=== PATIENT | female | born 1985 | race Caucasian/White ===

== ENCOUNTER 2018-10-19 05:04 | Inpatient (IN) | payer OTHER, BC, SELFPAY ==
[2018-10-19] VITALS (22 sets, daily range): BP systolic 91–122; BP diastolic 44–61; PULSE 66–102; RESP 11–19; TEMP 36.1–37; O2SAT 94–100; BMI 31.9
[2018-10-19] MEDS: Lactated Ringers 1,000 ML 150 ML IV (05:25)
[2018-10-19 05:43] LABS: Absolute Lymphocyte Count 2.22 X10^3/uL (0.83-4.51); Absolute Neutrophil Count 4.1 X10^3/uL (2.0-7.7); Basophil# 0.01 X10^3/uL; Basophil% 0.1 % (0-1); Eosinophils% 1.4 % (0-5); Hematocrit 35.6 % (37-47); Hemoglobin 12.2 g/dL (12.0-15.0); Lymphocyte # 2.22 X10^3/ul (4.0); Lymphocyte % 31.8 % (19-41); Mean Corp Hgb Conc 34.3 g/dL (32-36); Mean Corpuscular Hgb 31.2 pg (27.0-32.0); Mean Platelet Vol. 11.5 fl (6.2-12.0); Monocyte# 0.52 X10^3/uL; Monocyte% 7.4 % (0-10); NRBC Flagged by Analyzer 0 % (0-5); Neutrophil # 4.09 X10^3/uL (2.7-7.7); Neutrophil % 58.7 % (47-70); Platelet Count 201 K/mm3 (150-450); RBC Distribution Width CV 13.3 % (11.6-14.6); RBC Distribution Width SD 43.3 fl (35.1-43.9); Red Blood Count 3.91 M/mm3 (4.2-5.4)
[2018-10-19] MEDS: Sodium Citrate/Citric Acid 30 ML UDC PO (06:54)
[2018-10-19] MEDS: Lactated Ringers 1,000 ML 999 ML IV (06:55)
--- NOTE | 2018-10-19 07:19 | PCM.PN.BLA ---
Progress Note i HAVE REEXAMINED THE PATIENT, THERE ARE NO CHANGES TO HER HISTORY AND PHYSICAL EXAM
[2018-10-19] MEDS: Oxytocin 30 units/NS 500 ml 30 UNITS/500 ML IV.SOLN 167 UNITS IV (07:43)
--- NOTE | 2018-10-19 08:15 | PCM.OPRPT ---
Delivery Classification: Scheduled Final DALTON: 11/08/18 Final DALTON Source: US <20 weeks Gestational age: 37 Weeks and 1 Days Indications: Previous T incision on the uterus Description of Procedure: After informed consent was obtained the patient was taken to the operating room she was given spinal anesthesia. sHe was placed in the supine position. She was then prepped and draped in normal sterile fashion. Once spinal anesthesia was found to be adequate skin incision was made with a scalpel in a Pfannenstiel fashion. It was carried down to the underlying layer of the fascia. Fascia was then incised midline with scapel and extended laterally using curved mosher. 2 straight [place]'s were placed in the superior aspect of the fascial edge and the rectus muscles were dissected off sharply Attention was then turned to the inferior aspect where again the fascial edge was grasped with 2 straight [place] clamps tented up and the rectus muscle dissected off sharply. At this time the rectus muscles were grasped in the midline using 2 Allis clamps and scalpel was used to separate the rectus muscles. Using blunt force the peritoneum was then entered. Metzenbaums were used to take down the rectus muscles inferiorly as well as the peritoneum. At this time the vesicouterine peritoneum was identified. To begin adhesions to the anterior uterine wall appreciated. Metzenbaum scissors were dissected the adhesions off of the lower uterine segment. Adhesions to the right gutter were taken down to create more space. Adhesions to the left gutter were not able to be taken down due to how dense they were. Unable to obtain access to the left gutter. Adhesions to the anterior fundal aspect of the uterus is well were dense. Uterine incision was made in a low transverse fashion with the scalpel and then entered bluntly-placenta noted at site of uterine incision. Gentle opposing traction was placed to extend the uterine incision. The membranes were ruptured amniotic fluid clear. 's head was then brought to the uterine incision was delivered atraumatically followed by the rest infant's body. At this time delayed cord clamping was performed mouth nose were suctioned. Infant was then handed to the waiting nursery team for immediate skin to skin. The placenta was then removed with gentle traction. The uterus was not able to be removed from the intra-abdominal cavity due to the dense adhesions. Uterus was cleared of all clots and debris using a moist lap. Ring clamps were placed on the uterine angles. #1 Vicryl suture was used in a running locked fashion for the first layer. Followed by second layer with #1 Vicryl [id number] fashion for hemostasis. Oozing was appreciated from the adhesion sites as well as from the lower uterine segment. At this time pressure was held and Ayala was placed over the uterine incision as well as the adhesions. Overall good hemostasis was appreciated there was no active pooling appreciated. At this time was to continue closure. The peritoneum and muscle were grasped with Kellys and reapproximated using #2 Vicryl suture in a running fashion. Yaala was placed over the muscle. the fascia was then reapproximated using #1 Vicryl in a running fashion. Subcutaneous layer was evaluated and Bovie was used for any small oozing that was noted per #2-0 plain gut suture was then used to reapproximate the subcutaneous layer 4-0 Monocryl was used to reapproximate the skin in a subcutaneous fashion. Dry sterile dressing was applied. Instrument lap needle count were correct ?2. Anticipated normal postoperative course for this patient. Patient was notified of the dense adhesions and if she has further abdominal surgeries should notify operating team of these. Urine remain clear the entire procedure. No uterine dehiscence was appreciated Amniotic Membrane Rupture Type: Artificial Amniotic Fluid Description: Clear Placenta Disposition: [facility] Drain: Salgado to straight drain Cord Entanglement: None Cord Vessel Description: 3 Vessels Esitmated Blood Loss (ml): 900 Gender: Female (1 minute): 9 (5 minute): 9 Delayed cord clamping: Yes Pre-op Antibiotic Given: Clindamycin 600mg IV x1 and Gentamicin 1.5mg/kg IV x1 Pt instructed on risks of surgery: Bleeding, Anesthesia Risks, Infection, Need for Future C-Sections, Injury to surrounding structure(s) including bowel and bladder Complications: None - Admit VTE Documentation VTE Present on Admission: Yes VTE Mechan Device Prophylaxis: SCD's VTE Pharm Prophylaxis ordered?: No
[2018-10-19] MEDS: Lactated Ringers 1,000 ML 100 ML IV ×2 (08:30→16:11)
[2018-10-19] MEDS: Methylergonovine 0.2 MG/ML Ampul IM (08:51)
[2018-10-19] MEDS: Ondansetron 4 MG/2 ML Vial IV (11:59)
[2018-10-19] MEDS: Ketorolac 30 MG/ML Syringe IV ×2 (16:03→21:51)
[2018-10-19] MEDS: 0.9% Saline Lock 10 ML Syringe IV (21:52)
[2018-10-20] VITALS (8 sets, daily range): BP systolic 101–117; BP diastolic 52–63; PULSE 68–96; RESP 16–20; TEMP 36.6–36.9; O2SAT 96–98
[2018-10-20] MEDS: Lactated Ringers 1,000 ML 100 ML IV (01:50)
[2018-10-20] MEDS: Ketorolac 30 MG/ML Syringe IV ×4 (04:28→21:42)
[2018-10-20] MEDS: Senna/Docusate Sodium 1 Tablet PO (06:27)
[2018-10-20] MEDS: Acetaminophen 500 MG Tablet 1000 MG PO (06:28)
[2018-10-20 06:31] LABS: Hematocrit 25.9 % (37-47); Hemoglobin 8.7 g/dL (12.0-15.0); Mean Corp Hgb Conc 33.6 g/dL (32-36); Mean Corpuscular Hgb 31.1 pg (27.0-32.0); Mean Corpuscular Volume 92.5 fL (81-99); Mean Platelet Vol. 11.4 fl (6.2-12.0); Platelet Count 157 K/mm3 (150-450); RBC Distribution Width CV 13.7 % (11.6-14.6); RBC Distribution Width SD 46.6 fl (35.1-43.9); White Blood Count 9.9 K/mm3 (4.4-11.0)
--- NOTE | 2018-10-20 07:48 | PCM.PN.OB ---
Subjective: She is seen at bedside, doing well. Patient reports good pain control. Denies any chest pain, shortness of breath, dizziness, palpitations. Patient reports is ambulating. Voiding without difficulty. Passing flatus. Lochia is mild. Breast-feeding going well. - Physical Exam General: Alert, Oriented x3 Abdomen: Soft, Non-Distended, Passing Flatus, - - fundus firm. dressing dry and intact Extremities: No Calf Tenderness Vital Signs Temp Pulse Resp BP Pulse Ox 98.4 F 91 18 109/52 L 98 10/20/18 03:09 10/20/18 06:10 10/20/18 06:10 10/20/18 03:09 10/20/18 06:10 Oxygen Delivery Method Room Air Weight: 92.6 kg Body Mass Index (BMI) 31.9 Intake and Output for Last 24 Hours 10/18/18 10/19/18 10/20/18 23:59 23:59 23:59 Intake Total 3983 / 3983 1882 / 1882 Output Total 900 / 900 1300 / 1300 Balance 3083 / 3083 582 / 582 Laboratory Tests Past 24 Hrs 10/20/18 06:15 WBC 9.9 RBC 2.80 L Hgb 8.7 L Hct 25.9 L MCV 92.5 MCH 31.1 MCHC 33.6 RDW Std Deviation 46.6 H RDW Coeff of Terri 13.7 Plt Count 157 MPV 11.4 Medical Necessity - Tobacco Use Smoking Status: Never smoker Assessment/Plan POD#1, doing well- acute blood loss anemia routine care pain mgmt ambulation repeat cbc at 12p
[2018-10-20] MEDS: 0.9% Saline Lock 10 ML Syringe IV ×3 (10:24→21:42)
[2018-10-20] MEDS: oxyCODONE 5 MG Tablet PO ×3 (12:19→20:09)
[2018-10-20 12:25] LABS: Hematocrit 24.8 % (37-47); Hemoglobin 8.4 g/dL (12.0-15.0); Mean Corp Hgb Conc 33.9 g/dL (32-36); Mean Corpuscular Hgb 31.7 pg (27.0-32.0); Mean Corpuscular Volume 93.6 fL (81-99); Mean Platelet Vol. 11.4 fl (6.2-12.0); Platelet Count 164 K/mm3 (150-450); RBC Distribution Width CV 13.8 % (11.6-14.6); RBC Distribution Width SD 46.3 fl (35.1-43.9); Red Blood Count 2.65 M/mm3 (4.2-5.4); White Blood Count 9.7 K/mm3 (4.4-11.0)
[2018-10-21 02:05] VITALS: BP 116/65; PULSE 87; RESP 18; TEMP 36.9
[2018-10-21] MEDS: Ketorolac 30 MG/ML Syringe IV ×2 (03:41→10:29)
[2018-10-21] MEDS: 0.9% Saline Lock 10 ML Syringe IV ×2 (03:41→10:29)
[2018-10-21] MEDS: Senna/Docusate Sodium 1 Tablet PO (07:55)
[2018-10-21 08:00] VITALS: BP 104/57; PULSE 91; RESP 16; TEMP 36.6
--- NOTE | 2018-10-21 08:40 | PCM.PN.OB ---
Subjective: Doing well per patient and nursing staff. Voiding and passing flatus. Had bowel movement. No increased vaginal bleeding or clots. Denies any chest pain, shortness of breath or leg pain. without difficulty. Planning D/C home today. - Physical Exam General: Alert, Oriented x3, Cooperative HEENT: Atraumatic, Normocephalic Neck: Trachea Midline Lungs: Clear to auscultation, Normal air movement, No rhonchi, No wheeze Cardiovascular: Regular rate, Regular Rhythm, No murmurs Abdomen: Bowel Sounds Present, Soft, - - appropriately tender. Incision clean and dry. Extremities: No edema - Raya's negative bilaterally Psych/Mental Status: Normal Affect, Appropriate Vital Signs Temp Pulse Resp BP Pulse Ox 98.4 F 87 18 116/65 98 10/21/18 02:05 10/21/18 02:05 10/21/18 02:05 10/21/18 02:05 10/20/18 06:10 Oxygen Delivery Method Room Air Weight: 204 lb 2.369 oz Body Mass Index (BMI) 31.9 Intake and Output for Last 24 Hours 10/19/18 10/20/18 10/21/18 23:59 23:59 23:59 Intake Total 3983 / 3983 1882 / 1882 Output Total 900 / 900 1500 / 1500 Balance 3083 / 3083 382 / 382 Laboratory Tests Past 24 Hrs 10/20/18 12:05 WBC 9.7 RBC 2.65 L Hgb 8.4 L Hct 24.8 L MCV 93.6 MCH 31.7 MCHC 33.9 RDW Std Deviation 46.3 H RDW Coeff of Terri 13.8 Plt Count 164 MPV 11.4 Medical Necessity - Tobacco Use Smoking Status: Never smoker Assessment/Plan A:POD #2 Repeat Section P: 1) Reviewed post op instructions and discharge instructions 2) information reviewed 3) Percocet for pain, Rx given 4) Ferrous sulfate 325mg PO BID for anemia 5) Colace for constipation 6) D/C home today. Follow up in 1-2 weeks for incision check and 6 week for visit.
--- NOTE | 2018-10-21 08:55 | DS.PCM_ITS ---
Discharge Date and Diagnosis Date of Admission: 10/19/18 Date of Discharge: 10/21/18 - Primary Discharge Diagnosis section Hospital Course and Treatment Summary of Care Provided: The patient is a 33 year old F [Presented for repeat section due to previous T incision. Post op acute blood loss anemia. Rest of hospital course uncomplicated. Discharged home on POD #2. ] - Physical Exam Vital Signs Temp Pulse Resp BP Pulse Ox 98.4 F 87 18 116/65 98 10/21/18 02:05 10/21/18 02:05 10/21/18 02:05 10/21/18 02:05 10/20/18 06:10 Oxygen Delivery Method Room Air Weight: 204 lb 2.369 oz Body Mass Index (BMI) 31.9 Intake and Output for Last 24 Hours 10/19/18 10/20/18 10/21/18 23:59 23:59 23:59 Intake Total 3983 / 3983 1882 / 1882 Output Total 900 / 900 1500 / 1500 Balance 3083 / 3083 382 / 382 Laboratory Tests Past 24 Hrs 10/20/18 12:05 WBC 9.7 RBC 2.65 L Hgb 8.4 L Hct 24.8 L MCV 93.6 MCH 31.7 MCHC 33.9 RDW Std Deviation 46.3 H RDW Coeff of Terri 13.8 Plt Count 164 MPV 11.4 Home Medications: Medications to take at Discharge Vits [Prenatabs FA ] 1 tablet PO DAILY 02/10/16 Ferrous Sulfate 325 mg PO BID #30 tab 10/21/18 Oxycodone HCl/Acetaminophen [Percocet 5/325] 1 - 2 tab PO Q4H PRN PRN 7 Days #20 tab 10/21/18 Following Prescrptions Were Given to Patient: Ferrous Sulfate 325 mg PO BID #30 tab Transmission Status: Pending to [facility] Oxycodone HCl/Acetaminophen [Percocet 5/325] 1 - 2 tab PO Q4H PRN PRN 7 Days #20 tab PRN Reason: Pain Prescription Printed Primary Care Physician: Eric Mcfarlane MD [Primary Care Provider] - Medical Necessity - Tobacco Use Smoking Status: Never smoker Meaningful Use Info Meaningful Use Diagnoses (Choose all that apply): None applicable
[2018-10-21] MEDS: oxyCODONE 5 MG Tablet PO (12:57)
[2018-10-21 13:22] VITALS: BP 121/65; PULSE 97; RESP 16; TEMP 36.8
== END 2018-10-21 13:40 | disposition home or self-care (01) | DRG 786 ==
PROVIDERS: Admitting Provider Obstetrics & Gynecology; Family Provider Family Medicine; PCP Family Medicine; Referring Provider Obstetrics & Gynecology; Visit Provider Obstetrics & Gynecology
PROC: 10D00Z1 Extraction of Products of Conception, Low, Open Approach (ICD-10-PCS; CPT 59514; principal; 2018-10-19 07:15)
DX: O65.5 Obstructed labor due to abnormality of maternal pelvic organs (principal); O60.14X0 Preterm labor third trimester with preterm delivery third trimester, not applicable or unspecified; D62 Acute posthemorrhagic anemia; O34.211 Maternal care for low transverse scar from previous cesarean delivery; O99.02 Anemia complicating childbirth; Z3A.37 37 weeks gestation of pregnancy; Z37.0 Single live birth
CPT/HCPCS: 85025; 85027; 86850; 86900; 94762; 99218; J7120; A4216; G0378; J2405

== ENCOUNTER 2022-08-01 05:05 | Inpatient (IN) | payer BC, SELFPAY ==
--- NOTE | 2022-07-29 08:12 | PCM.HP.BLA ---
History and Physical Date of Admission: 08/01/22 Pre-Op History and Physical ? HPI: The patient is a 37 year old female presenting for pre-operative visit. She is scheduled for , for repeat cs for h/o T incision on uterus on 08/01/22. Procedure discussed along with risks, benefits and complications. Other alternatives discussed for management. Consent form signed? Yes. ? ? PAST MEDICAL HISTORY PAST MEDICAL HISTORY Diagnosis Date ? Anemia ? ? infertilty ? ? male factor ? Overweight (BMI 25.0-29.9) ? ? hemorrhage ? ? blood transfusion -2Unites of PRBC ? Scoliosis ? ? Seasonal allergies ? ? ? PAST SURGICAL HISTORY PAST SURGICAL HISTORY Procedure Laterality Date ? DELIVERY ONLY ? 02/10/2016 ? T incision- needs 37 week repeat csection with all deliveries ? DELIVERY ONLY ? 10/19/2018 ? RC/S T incision, ? IVF RETRIEVAL ANY METHOD ? ? ? KERATOMILEUSIS Bilateral 11/01/2021 ? DVA OU BY DR. PARRA ? MYRINGOTOMY ASPIR&/EUSTACHIAN TUBE NFLTJ ANES ? ? ? Myringotomy/tubes-when she was a child-they were removed. ? ? ? CURRENT MEDICATIONS Current Outpatient Medications Medication Sig Dispense Refill ? pantoprazole DR (PROTONIX) 20 mg tablet Take 1 tablet by mouth once daily. 30 tablet 3 ? aspirin 81 mg chewable tablet Take 81 mg by mouth once daily. ? ? ? PROGESTERONE IN OIL INTRAMUSC. Inject intramuscularly. ? ? ? Safety [place] (BD SAFETYGLIDE NEEDLE) 22 gauge x 1 1/2 ndle To be used to inject progesterone in oil. 105 Each 0 ? estradiol (ESTRACE) 2 mg tablet Take 3 tablets by mouth once daily. 120 tablet 3 ? Syringe with Needle, Disp, (BD LUER-ASHKAN SYRINGE) To be used to draw up progesterone in oil. 30 Each 3 ? Needle, Disp, 22 G (BD DISPOSABLE NEEDLES) 22 gauge x 1 1/2 To be used to inject progesterone in oil. 30 Each 3 ? PNV No.40-Iron Fum-FA Cmb No.1 27-1 mg tab Take 1 tablet by mouth once daily. 30 tablet 11 ? multivitamin tablet Take 1 tablet by mouth once daily. ? ? ? No current facility-administered medications for this visit. ? ? ALLERGIES: Penicillins ? PERSONAL HISTORY: SOCIAL HISTORY Social History ? Tobacco Use ? Smoking status: Never ? Smokeless tobacco: Never Vaping Use ? Vaping Use: Never used Substance Use Topics ? Alcohol use: Not Currently ? ? Comment: occasional ? Drug use: No ? FAMILY HISTORY: FAMILY HISTORY FAMILY HISTORY Problem Relation Age of Onset ? Breast Cancer Mother 42 ? Hypertension Father ? ? No Known Problems Brother ? ? No Known Problems Maternal Grandmother ? ? other (dementia) Maternal Grandfather ? ? Heart Paternal Grandmother ? ? Cancer Paternal Grandfather ? ? lung ? No Known Problems Daughter ? ? No Known Problems Daughter ? ? Alzheimer's Disease Other ? ? MGGM ? Glaucoma No Family History ? ? Detached Retina No Family History ? ? Macular Degen No Family History ? ? Blindness No Family History ? ? ? REVIEW OF SYMPTOMS: negative except as noted above PHYSICAL EXAMINATION: ? VITALS: Blood pressure 118/60, weight 201 lb (91.2 kg), last menstrual period 11/16/2021. ? GENERAL: The patient is well nourished, well hydrated in no acute distress. , The patient is oriented to time, place, and person. NECK: Supple. No lynphadenopathy, normal thyroid, no thyromegaly. GENITALIA: normal, no lesions ? IMPRESSION: 37yo @ 36.1 weeks h/o T- incision on uterus, AMA, IVF ? PLAN: 37 week repeat section ? Pt has been counseled on risks/benefits and alternatives of surgery including but not limited to anesthesia, bleeding, infection, injury to pelvic structures including bowel, bladder, ureters and vessels. Pt wishes to proceed with surgery at this time. Risk of blood transfusion reviewed. ? Pre and post op instructions reviewed. ? I have reviewed and updated past medical and surgical history, medications and allergies Marysol Butts MD Routine Office Visit on 07/26/2022 Routine Office Visit on 07/26/2022 Note shared with patient
[2022-08-01] VITALS (18 sets, daily range): BP systolic 96–126; BP diastolic 46–81; PULSE 68–111; RESP 11–21; TEMP 35.8–37.1; O2SAT 95–100; BMI 31.8
[2022-08-01] MEDS: Lactated Ringers 1,000 ML 999 ML IV (05:50)
[2022-08-01 06:09] LABS: Absolute Neutrophil Count 4.7 X10^3/uL (2.0-7.7); Basophil# 0.02 X10^3/uL; Basophil% 0.3 % (0-1); Eosinophil# 0.13 X10^3/uL; Eosinophils% 1.9 % (0-5); Hemoglobin 11.4 g/dL (12.0-15.0); Lymphocyte % 22.9 % (19-41); Mean Corp Hgb Conc 32.6 g/dL (32-36); Mean Corpuscular Hgb 30.6 pg (27.0-32.0); Mean Corpuscular Volume 94.1 fL (81-99); Mean Platelet Vol. 10.9 fl (6.2-12.0); Monocyte# 0.49 X10^3/uL; NRBC Flagged by Analyzer 0 % (0-5); Neutrophil # 4.68 X10^3/uL (2.7-7.7); Neutrophil % 66.9 % (47-70); Platelet Count 240 K/mm3 (150-450); RBC Distribution Width CV 13.5 % (11.6-14.6); RBC Distribution Width SD 45.9 fl (35.1-43.9); Red Blood Count 3.72 M/mm3 (4.2-5.4)
[2022-08-01] MEDS: Acetaminophen 500 MG Tablet 1000 MG PO ×3 (06:36→22:33)
[2022-08-01] MEDS: Sodium Citrate/Citric Acid 30 ML UDC PO (06:36)
[2022-08-01] MEDS: Lactated Ringers 1,000 ML 150 ML IV (06:50)
[2022-08-01] MEDS: Cefazolin 2 GM in 0.9% Normal Saline 100 ML IV (07:33)
[2022-08-01 09:15] LABS: Syphilis Antibodies Non-reactive
[2022-08-01] MEDS: Oxytocin 15 Units/NS 250ml 15 UNITS/250 ML IV.SOLN 83 UNITS IV (09:45)
--- NOTE | 2022-08-01 09:57 | FALS_PTH ---
PATIENT: ROYAL LUX LOC: WP U#:[id number] AGE/SX: 37/F ROOM: WP004 RE08/01/[address]: Dr. Marysol Mccormick, MDDOB: 1985 BED: 1 DIS: 08/03/2022 SPEC #: [id number] RECD: 08/01/22 11:01 STATUS: VIOLETA HIMANSHU #: [id number] ABRAHAM: 08/01/22 09:[address]: Marysol Mccormick DEPT: SURGICAL PATHOLOGY RECD BY: Kimmy Tipton ENTERED: 08/01/22 11:01 SP TYPE: FALL TUBES OTHR DR: Dr. Eric Mcfarlane MD Tissues: Fallopian tube Procedures: Surgery Specimen Level II HEADER OPERATION: Tubal ligation PRE-OP DIAGNOSIS: Sterilization TISSUE SUBMITTED: Bilateral fallopian tubes MICROSCOPIC DIAGNOSIS Right and left fallopian tubes, bilateral segmental salpingectomies: Complete segments of fallopian tubes with no pathologic change. AM:christopher 08/02/2022 MICROSCOPIC DESCRIPTION Slides are reviewed. GROSS DESCRIPTION Received in fixative is one container labeled with the patient's name and designated bilateral fallopian tubes. The specimen consists of bilateral fallopian tubes including fimbrial ends. One fallopian tube shows a suture, however, is not designated right or left. The fallopian tube without suture measures 8.5 cm in length and 0.7 cm in diameter and fallopian tube with suture measures 8.5 cm in length and 0.5 cm in diameter. Sections reveal unremarkable cut surfaces. Steward/Stewardess Bath sections are submitted in two cassettes as follows: 1 - fallopian tube with suture, 2 - fallopian tube without suture. / SJ:christopher 08/01/2022 TC:4 [facility]: [id number] x2
[2022-08-01 10:08] LABS: Pathology Specimen OB SEE PATHOLOGY REPORT
[2022-08-01] MEDS: Ketorolac 30 MG/ML Syringe IV (10:26)
--- NOTE | 2022-08-01 10:49 | OP.PCM_ITS ---
Details Operative Information Date of Procedure: 08/01/22 Pre-Operative Diagnosis: 37 weeks, h/o T incision on uterus, h/o PP hemorrhage, AMA, IVF Post-Operative Diagnosis: Same, Dense Pelvic/peritoneal adhesions Indications for : Repeat Elective and Desires elective sterilization Indications Narrative: Patient had prior T-incision on her uterus. Recommended delivery at 37 weeks. Dense adhesions to the anterior uterus. Patient was counseled during the section that further would be very difficult during the surgery patient opted for bilateral salpingectomy. Patient was counseled and verbal consent was obtained during the procedure to perform bilateral salpingectomy. Classification: Scheduled Procedure Type: - (High transverse ) manufacturing technology analyst #1: Kym Weaver manufacturing technology analyst #2: leeanne noel [id number] Type of Anesthesia: Spinal Antibiotic Given: Ancef 2 grams IV x1 Drain: Salgado to straight drain Estimated Blood Loss: 1000 Fluids Replaced: 1050 Procedure Start Time: 07:49 Procedure Stop Time: 08:52 Time of Delivery: 08:00 Findings Description of Procedure: After informed consent was obtained the patient was taken to the operating room she was given spinal anesthesia. sHe was placed in the supine position. She was then prepped and draped in normal sterile fashion. Once spinal anesthesia was found to be adequate skin incision was made with a scalpel in a Pfannenstiel fashion. It was carried down to the underlying layer of the fascia. Fascia was then incised midline with scapel and extended laterally using scalpel. 2 straight [place]'s were placed in the superior aspect of the fascial edge and the rectus muscles were dissected off with bovie. At this time the rectus muscles were grasped in the midline using 2 Allis clamps and scalpel was used to separate the rectus muscles. Peritoneum was then grasped with 2 snaps Metzenbaum was used to enter the peritoneum significant adhesions were encountered. Bovie was used to take down the rectus muscles inferiorly. Dense adhesions were encountered muscle was taken down laterally. Unable to take down the adhesions inferiorly. At this time decision was made to create a high transverse incision on the uterus. Uterine incision was made in a high transverse fashion with the scalpel and then entered bluntly. Gentle opposing traction was placed to extend the uterine incision. Placenta was encountered. The membranes were ruptured amniotic fluid appeared to be clear. 's head was then brought to the uterine incision was delivered atraumatically followed by the rest infant's body. At this time no delayed cord clamping was performed the cord was immediately clamped mouth nose were suctioned. Infant was then handed to the waiting nursery team. The placenta was then removed with gentle traction. The uterus was removed from the intra-abdominal cavity is wrapped in a moist lap. it was cleared of all clots and debris using a moist lap. Ring clamps were placed on the uterine angles. #1 Vicryl suture was used in a running locked fashion for the first layer. Followed by second layer for hemostasis with #1 Vicryl with multiple [id number] sutures. Patient was counseled at this time due to the significant adhesions and difficult nature of the section that I would recommend even though she was IVF pregnancies at salpingectomy be performed due to the chance of spontaneous . This was discussed multiple times at her previous visits patient agreed at this time. LigaSure was then opened and Babcocks were used to grasp the left tube in an avascular area. The LigaSure was then used to coagulate and ligate along the medial Salpix to remove the left tube. The uterus was still slightly oozing from all of the adhesions sutures were thrown however still oozing was noted at this time the uterus was placed back in the intra-abdominal cavity to leave the right adnexal area visible. Pressure was held at the incision site. The right tube was grasped in an avascular area with the Marija's. The LigaSure was used to remove the right tube in its entirety. The right adnexa was then placed back in the intra-abdominal cavity good hemostasis was appreciated. At this time then Floseal was used and good hemostasis was appreciated. Monitor the uterine incision as well as the adhesive bands that were below the uterine incision and good hemostasis was appreciated. Ayala was placed over the rectus muscles. The fascia was then reapproximated using #1 PDS in a running fashion. Subcutaneous layer was evaluated and Bovie was used for any small oozing that was noted per #2-0 plain gut suture was then used to reapproximate the subcutaneous layer. Ayala was placed over the subcu layer. There was some small oozing noted in the right corner this was coagulated with the Bovie multiple times suture [id number] was placed. Good hemostasis was appreciated. 4-0 Vicryl on a Alex needle was used to reapproximate the skin in a subcutaneous fashion. Dry sterile dressing was applied. Instrument lap needle count were correct ?2. Anticipated normal postoperative course for this patient. Presentation: Positive for Vertex Amniotic Membrane Rupture Type: Artificial Amniotic Fluid Description: Clear Placental Delivery Description: Manual Removal Placenta Disposition: [facility] Cord Vessel Description: 3 Vessels Cord Entanglement: None Infant A Gender: Female (1 minute): 8 (5 minute): 8 Delayed Cord Clamping: No Complications Risks of Surgery Discussed w/Patient: Bleeding, Anesthesia Risks, Infection, Permanency and Injury to surrounding structure(s) including bowel and bladder Complications: significant adhesions - Recommendation for salpingectomy given risk of spontaneous . Pt gave verbal consent during procedure.
[2022-08-01] MEDS: proCHLORPERazine 10 MG/2 ML Vial IV (11:21)
--- NOTE | 2022-08-01 11:30 | NURSING ---
1130- IBCLC in room to assist with pumping. MOB nauseous and has been vomitting since delivery. Breast pump reviewed and MOB reports feeling okay enough to try to pump for 15 minutes right now. Pumped bilaterally for 15 minutes, then hand expression performed. 1cc of colostrum and 3 swabs labeled and taken over to SCN for .
[2022-08-01] MEDS: Lactated Ringers 1,000 ML 100 ML IV (14:00)
[2022-08-01] MEDS: Ondansetron 4 MG/2 ML Vial IV (14:15)
--- NOTE | 2022-08-01 14:26 | NURSING ---
pt having an emesis at this time, I have held her dosage of tylenol because of the nausea she has experienced this shift. pt medicated with zofran at this time.
[2022-08-01 14:58] LABS: Hematocrit 28.7 % (37-47); Hemoglobin 9.6 g/dL (12.0-15.0); Mean Corp Hgb Conc 33.4 g/dL (32-36); Mean Corpuscular Hgb 30.9 pg (27.0-32.0); Mean Corpuscular Volume 92.3 fL (81-99); Mean Platelet Vol. 10.5 fl (6.2-12.0); Platelet Count 201 K/mm3 (150-450); RBC Distribution Width CV 13.7 % (11.6-14.6); RBC Distribution Width SD 46.5 fl (35.1-43.9); Red Blood Count 3.11 M/mm3 (4.2-5.4); White Blood Count 16.2 K/mm3 (4.4-11.0)
--- NOTE | 2022-08-01 21:55 | NURSING ---
Dressing chnaged by Kinsey at 1930. at 1999 for assessment, small amount of drainage circled. At 2139, when straight cathing the patient, drained was circled again around previous [place].
--- NOTE | 2022-08-01 22:41 | NURSING ---
Addendum entered by Cesar Mercado 08/02/22 00:36: Dr. Valdez written in error. Correct physician was Dr. De. Original Note: Talked to Dr. Valdez about drainage present on new dressing. José Miguel came and assessed pt and thinks a pressure dressing would be beneficial for the night time. At the moment used a weighted bag on top of the incision but when pt is going to get ready for bed, a pressure dressing can be applied.
[2022-08-02] VITALS (7 sets, daily range): BP systolic 108–122; BP diastolic 56–63; PULSE 79–97; RESP 16–18; TEMP 36.3–36.9; O2SAT 97–99
--- NOTE | 2022-08-02 02:13 | NURSING ---
pt voided for first time at 0130 with no complications but forgot to put the hat back in the toilet to measure.
[2022-08-02] MEDS: Ibuprofen 600 MG Tablet PO ×4 (03:37→22:17)
--- NOTE | 2022-08-02 03:50 | NURSING ---
Pressure dressing was applied by rosendo RN and Emely TREVINO at [address] Santino erwin.
[2022-08-02] MEDS: Acetaminophen 500 MG Tablet 1000 MG PO ×4 (04:39→22:17)
[2022-08-02 04:51] LABS: Hemoglobin 7.5 g/dL (12.0-15.0); Mean Corp Hgb Conc 32.6 g/dL (32-36); Mean Corpuscular Hgb 30.6 pg (27.0-32.0); Mean Corpuscular Volume 93.9 fL (81-99); Mean Platelet Vol. 10.7 fl (6.2-12.0); Platelet Count 188 K/mm3 (150-450); RBC Distribution Width CV 13.8 % (11.6-14.6); RBC Distribution Width SD 46.9 fl (35.1-43.9); Red Blood Count 2.45 M/mm3 (4.2-5.4); White Blood Count 10.6 K/mm3 (4.4-11.0)
--- NOTE | 2022-08-02 06:17 | NURSING ---
No 24 hour duramorph orders were put in after surgery. During shift engineer, this RN documented duramorph checks under vital signs tab in worklist q2h's.
[2022-08-02] MEDS: 0.9% Saline Lock 10 ML Syringe IV (07:40)
--- NOTE | 2022-08-02 08:35 | PCM.PN.OB ---
Subjective Subjective Patient seen at bedside. Feeling well. Pain is controlled. Patient ambulating and voiding without difficulty. Passing flatus. Denies any CP, SOB or dizziness. Baby in SCN. Patient pumping and feeding via syringe. Objective Data Objective Data Vital Signs: Vital Signs Temp Pulse Resp BP Pulse Ox O2 Del Method 97.9 F 92 16 110/62 99 Room Air 08/02/22 03:38 08/02/22 06:00 08/02/22 06:00 08/02/22 03:38 08/02/22 06:00 08/02/22 06:00 Oxygen Delivery Method Room Air Weight: 203 lb 6.4 oz Body Mass Index (BMI) 31.8 Intake & Output: Intake and Output for Last 24 Hours 07/31/22 08/01/22 08/02/22 23:59 23:59 23:59 Intake Total 3510 / 3510 Output Total 1999 / 1999 400 / 400 Balance 1510 / 1510 -400 / -400 Lab / Micro Data Result Diagrams: 08/02/22 04:42 Labs: Laboratory Results - last 24 hr 08/01/22 05:50: Syphilis Total Ab Non-reactive 08/01/22 14:45: WBC 16.2 H, RBC 3.11 L, Hgb 9.6 L, Hct 28.7 L, MCV 92.3, MCH 30.9, MCHC 33.4, RDW Std Deviation 46.5 H, RDW Coeff of Terri 13.7, Plt Count 201, MPV 10.5 08/02/22 04:42: WBC 10.6, RBC 2.45 L, Hgb 7.5 L, Hct 23.0 L, MCV 93.9, MCH 30.6, MCHC 32.6, RDW Std Deviation 46.9 H, RDW Coeff of Terri 13.8, Plt Count 188, MPV 10.7 ROS Eyes Eyes: Denies blurry vision, change in vision or spots in vision ENT HEENT: Denies dizziness or headache(s) Cardiovascular Cardiovascular: Denies abdominal pain, chest pain or dyspnea Respiratory/Chest Respiratory/Chest: Denies cough, dyspnea, shortness of breath at rest or shortness of breath with exertion Gastrointestinal Gastrointestinal: Denies abdominal pain, diarrhea or vomiting Genitourinary Genitourinary: Denies change in urinary stream, difficulty urinating or dysuria Musculoskeletal Musculoskeletal: Reports none Integumentary Integumentary: Denies rash Neurologic Neurologic: Denies dizziness, headache(s), memory loss or weakness Physical Exam Narrative Dressing is dry and intact Const alert and no apparent distress General Appearance: cooperative and comfortable Exam Limitations: no limitations HEENT normocephalic Eyes General Eye: normal appearance of both eyes Neck full ROM General: normal visual inspection Chest Chest: symmetrical chest wall rise Resp normal respiratory effort and normal air movement Effort and Inspection: symmetric chest movement Auscultation: clear to auscultation bilaterally Cardio regular rate and regular rhythm GI normal to inspection, nondistended, normoactive bowel sounds Back/Spine normal ROM Extremity full ROM and no calf tenderness General Extremity: normal exam except as noted Skin no rashes or lesions noted Neuro CN's II-XII intact bilaterally Psych mental status grossly normal Assessment & Plan (1) Status post repeat low transverse section: (2) Care and examination of lactating mother: (3) Anemia due to blood loss: PLAN: Plan PO Day 1 Repeat C/S with BTL Pain control Increase ambulation Start Ferrous Sulfate PO BID- HGB 7.5 Repeat CBC in AM
--- NOTE | 2022-08-02 09:21 | CASEMGMT ---
Social Work Assessment--Brief Labor and Delivery Unit ? ? Date of Referral: 08/01/2022 Time of Referral: 9:55am Date of Intervention: 08/02/22 Time of Intervention: 8:30am ? Referral Site: [facility] ? Reason for Referral: Baby in SCN, entered by Stephanie Johnson ? History Baby Soledad was born on 08/01/[birth year], 8am, 3.17kg. Apgars were 8 and 9, however baby dusky, put on Cpap then blow by blow oxygen for first 4 hours of life, due to hypoxemia. ? SW spoke w/ROSANNA in room. Family composition is MOB, FOB Milton, and two daughters Sheila(6) and Unique(3), and now Soledad. MOB and FOB have been together for 17 years, 12. MOB and FOB are guardians of all 3 children. No safety concerns at home as per MOB. ? Financial: They have no financial concerns. 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 FOB works as a commercial care coordinator. MOB does plan to return to work after 12 weeks. 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 She sees importance of being a mom and also being outside of the home at times, for adult interaction. ? Infant supplies: They have all needed supplies including diapers, wipes, car seat, crib, bassinet, clothing. They have access to formula and bottles if needed, though MOB is . ? Childcare/Caregivers: MOB and FOB, and MOB's mother will watch the baby when she returns to work. ? Transportation: They have two vehicles. ? Programs/Agencies/Children's Services: None involved. ? Mental Health: SW spoke w/ROSANNA, she has no history of any mental health concerns. She states she was down after her first baby was born, states she had a and it was in the middle of winter, felt isolated. She states with the second baby it was better. ? Support Systems: MOB's parents, her brother and sister in law. ? Resources: SW did give MOB information about depression and anxiety and reviewed the information with her, along with hotline numbers if needed. ? Impression: MOB open w/SPRING, answered all questions completely and appropriately. We spoke about how things did not go as expected yesterday, and that yesterday was difficult. MOB states she is feeling much better today about everything, and that her baby is also doing well and recovering well. She has no homegoing concerns. SW has no concerns at this time, MOB appropriate, forthcoming, and capable. ? Plan: Baby Soledad to go home with MOB and FOB and her sisters at discharge. ? Response to Plan: MOB in agreement with plan. ? No further social work needs requested or anticipated at this time. ? MAYO [place] 08/02/2022 ? ?
[2022-08-02] MEDS: Senna/Docusate Sodium 1 Tablet PO (09:57)
[2022-08-02] MEDS: Ferrous Sulfate 325 MG Tablet PO ×2 (09:57→22:16)
[2022-08-03 02:22] VITALS: BP 106/57; PULSE 91; RESP 16; TEMP 36.7; O2SAT 97
[2022-08-03] MEDS: Acetaminophen 500 MG Tablet 1000 MG PO (04:18)
[2022-08-03] MEDS: 0.9% Saline Lock 10 ML Syringe IV (04:18)
[2022-08-03] MEDS: Ibuprofen 600 MG Tablet PO (04:18)
[2022-08-03 04:28] LABS: Hematocrit 24.5 % (37-47); Hemoglobin 7.9 g/dL (12.0-15.0); Mean Corp Hgb Conc 32.2 g/dL (32-36); Mean Corpuscular Hgb 30.5 pg (27.0-32.0); Mean Corpuscular Volume 94.6 fL (81-99); Mean Platelet Vol. 10.7 fl (6.2-12.0); Platelet Count 215 K/mm3 (150-450); RBC Distribution Width CV 14.2 % (11.6-14.6); RBC Distribution Width SD 47.6 fl (35.1-43.9); Red Blood Count 2.59 M/mm3 (4.2-5.4); White Blood Count 8.8 K/mm3 (4.4-11.0)
[2022-08-03 07:45] VITALS: BP 114/63; PULSE 90; RESP 15; TEMP 36.6; O2SAT 99
[2022-08-03] MEDS: Ferrous Sulfate 325 MG Tablet PO (07:54)
--- NOTE | 2022-08-03 08:44 | PCM.DC.SUM ---
Providers Date of Admission: 08/01/22 Primary Care Physician: Dr. Eric Mcfarlane MD Reason For Visit: REPEAT C SECTION Diagnosis Discharge Diagnosis (1) Status post repeat low transverse section: Status: Acute Code(s): Z98.891 - History of uterine scar from previous surgery (2) Care and examination of lactating mother: Status: Acute Code(s): Z39.1 - Encounter for care and examination of lactating mother (3) Anemia due to blood loss: Status: Acute Code(s): D50.0 - Iron deficiency anemia secondary to blood loss (chronic) Medications at Discharge Home Medications vits,calcium no.78-iron fumarate-folic acid 29 mg-1 mg tablet (Prenatabs FA) 1 tab PO DAILY 02/10/16 ferrous sulfate 325 mg (65 mg iron) tablet 325 mg PO BID anemia 08/01/22 acetaminophen 500 mg tablet 1,000 mg PO Q6 #0 tabs 08/03/22 ibuprofen 600 mg tablet 600 mg PO Q6H #0 tabs 08/03/22 sennosides 8.6 mg-docusate sodium 50 mg tablet (Stool Softener-Stimulant Laxative) 1 - 2 tab PO DAILY #0 tabs 08/03/22 Hospital Course Operations section Summary of Care Provided Hospital Course: Patient was here for repeat section. Hospital course was uneventful. Physical Exam Narrative Dressing is dry and intact. Patient seen at bedside. Ambulating and voiding. Denies any dizziness, headache, SOB or CP. Desires discharge home today. Const alert and no apparent distress General Appearance: cooperative and comfortable Exam Limitations: no limitations HEENT normocephalic Eyes General Eye: normal appearance of both eyes Neck full ROM General: normal visual inspection Chest Chest: symmetrical chest wall rise Resp normal respiratory effort and normal air movement Effort and Inspection: symmetric chest movement Auscultation: clear to auscultation bilaterally Cardio regular rate and regular rhythm GI normal to inspection, nondistended, normoactive bowel sounds Back/Spine normal ROM Extremity full ROM and no calf tenderness General Extremity: normal exam except as noted Skin no rashes or lesions noted Neuro CN's II-XII intact bilaterally Psych mental status grossly normal Weight / BMI Weight Weight: 203 lb 6.4 oz Body Mass Index (BMI) 31.8 ABG / Lab / Microbiology Data Result Diagrams: 08/03/22 04:16 Laboratory: Laboratory Results - last 24 hr 08/03/22 04:16: WBC 8.8, RBC 2.59 L, Hgb 7.9 L, Hct 24.5 L, MCV 94.6, MCH 30.5, MCHC 32.2, RDW Std Deviation 47.6 H, RDW Coeff of Terri 14.2, Plt Count 215, MPV 10.7 D/C Instructions Discharge Diet: No restrictions Discharge Activity: May Drive (2 weeks) and May Shower May resume sexual activity in: 6-8 weeks Weight Bearing Status: Weight bearing as tolerated Call your doctor if your incision/area has: Continuous Slow Oozing, Sudden Increased Bleeding, Increased Pain/ Swelling, Increased Redness, Foul Smelling Discharge and Swelling at the incision site Call your doctor if you observe: Fever of 101 or Higher, Numbness or Tingling, Using more than 1 pad per hour, Shortness of breath, Dizziness, Swelling in the ankles, Chest pain, Calf discomfort and Uncontrolled pain Suture Line Care: Avoid Pulling/Pushing When: 1 week for incision check Meaningful Use Info Meaningful Use Diagnoses (Choose all that apply): None applicable Discharge Plan Admission Admit Date/Time: 08/01/22 05:05 Primary Reason for Your Visit: Repeat Section Attending Provider: Marysol Mccormick Primary Care Provider: Eric Mcfarlane Discharge Orders/Prescriptions Prescriptions: New sennosides-docusate sodium [Stool Softener-Stimulant Laxat] 8.6-50 mg Tablet 1 - 2 tab PO DAILY Qty: 0 0RF acetaminophen 500 mg Tablet 1,000 mg PO Q6 Qty: 0 0RF ibuprofen 600 mg Tablet 600 mg PO Q6H Qty: 0 0RF Continued Prenatabs FA 1 TABLET tablet 1 tab PO DAILY ferrous sulfate 325 MG tablet 325 mg PO BID Discontinued aspirin 81 mg Tablet 81 mg PO DAILY Referrals / Follow Up: Eric Mcfarlane MD [Primary Care Provider] - Disposition Disposition (needs filled in before D/C Order can be placed): Home, Self Care
== END 2022-08-03 10:10 | disposition home or self-care (01) | DRG 785 ==
PROVIDERS: Advanced Practice Midwife; Admitting Provider Obstetrics & Gynecology; PCP Family Medicine; Visit Provider Obstetrics & Gynecology
PROC: 10D00Z1 Extraction of Products of Conception, Low, Open Approach (ICD-10-PCS; CPT 59514; principal; 2022-08-01 06:55)
DX: O34.211 Maternal care for low transverse scar from previous cesarean delivery (principal); D50.0 Iron deficiency anemia secondary to blood loss (chronic); Z37.0 Single live birth; K66.0 Peritoneal adhesions (postprocedural) (postinfection); Z3A.37 37 weeks gestation of pregnancy; O99.62 Diseases of the digestive system complicating childbirth; O99.03 Anemia complicating the puerperium
CPT/HCPCS: 59050; 85025; 85027; 86780; 86850; 86900; 86901; 88302; 99221; J7120; A4216; G0378; J2405

== ENCOUNTER 2024-01-20 22:19 | Emergency (ER) | payer BC, SELFPAY ==
[2024-01-20 22:20] VITALS: BP 128/71; PULSE 82; RESP 16; TEMP 37; O2SAT 100; BMI 31.6
--- NOTE | 2024-01-20 23:26 | CT_ITS ---
INDICATION: r-sided headache EXAMINATION: CT BRAIN - CT Head or Brain W/O Contrast Injection TECHNIQUE: Multiple axial images were obtained of the head without intravenous contrast. The protocol utilizes one or more of the following dose reduction techniques: automated exposure control, adjustment of mA and/or kV according to patient size,and/or use of iterative reconstruction technique. IV Contrast dosage and agent: None. RADIATION DOSAGE (If Supplied By Facility): CTDIvol = ( 44.99 ) mGy, DLP = ( 779.24 ) mGycm COMPARISON: No relevant prior comparison study available FINDINGS: BRAIN: No acute bleed. No edema. [place]-white matter differentiation is maintained. The cerebellar tonsils are low lying appear to extend just below the foramen magnum. VENTRICLES AND SULCI: Not dilated. EXTRA-AXIAL: No hemorrhage, fluid collection, or mass. CALVARIUM / SKULL BASE: Unremarkable. FACE/SINUSES: Unremarkable. SOFT TISSUES: Unremarkable. CT/Brain/Head without Contrast IMPRESSION: No acute abnormality. Relatively low lying cerebellar tonsils. Recommend follow-up nonemergent MRI to assess for Chiari malformation. Electronically Signed: Erica Lozada MD at 0:56 EST ,
--- NOTE | 2024-01-20 23:27 | EX.ED.VIS.HA ---
HPI History of Present Illness Chief Complaint: Headache Detail of Chief Complaint: Recurrent right-sided headache for 2 weeks. Informant: patient Onset/Context/Timing Onset: Weeks Context: Gradual Timing: Intermittent Quality -Headache: Positive for Similar Prior Headaches and Sharp Current Severity: Moderate Maximum Severity: Severe Associated Symptoms/Injury Associated Symptoms: Positive for Photophobia; Negative for Fever, Nausea, Vomiting, Numbness, Tingling or Visual Loss Injury - [place]: Negative for Direct Trauma, Fall or Assault Narrative Narrative: 38-year-old female healthy no significant family history of either migraines, intracranial bleeds, brain surgery or aneurysms. States for the last 2 weeks she has had recurrent right-sided headaches around her right baptism to come and go. Normally they come on there is severe and that she takes Tylenol or aspirin or ibuprofen these begin if they are feeling better. At times and because her right eye to water. She denies any sinus congestion. No falls or trauma. She is on no blood thinners. No fever. No neck stiffness. No trouble moving her arms or legs. Prior similar symptoms: Yes Recent Illness/Hospitalization: No [facility] Medical History Anemia due to blood loss Care and examination of lactating mother Infertility hemorrhage History of blood transfusion Home Medications ?Medication ?Instructions ?Recorded ?Last Taken ?Type vits,calcium no.78-iron 1 tab PO DAILY 02/10/16 07/31/22 12:00 History fumarate-folic acid 29 mg-1 mg tablet (Prenatabs FA) ferrous sulfate 325 mg (65 mg 325 mg PO BID anemia 08/01/22 07/31/22 12:00 History iron) tablet acetaminophen 500 mg tablet 1,000 mg (2 x 500 mg) PO Q6 #0 tabs 08/03/22 Unknown Rx ibuprofen 600 mg tablet 600 mg PO Q6H #0 tabs 08/03/22 Unknown Rx sennosides 8.6 mg-docusate sodium 1 - 2 tab PO DAILY #0 tabs 08/03/22 Unknown Rx 50 mg tablet (Stool Softener-Stimulant Laxative) sumatriptan succinate 25 mg tablet See Rx Instructions PO .COMPLEX 01/21/24 Unknown Rx (Imitrex) #10 tabs Allergy/AdvReac Type Severity Reaction Status Date / Time Penicillins (PCN) Allergy Anaphylaxis Verified 01/20/24 22:21 Surgical History Status post repeat low transverse section Previous section Social History Smoking Status: Never smoker ROS ROS ED ROS Narrative Right-sided headache Constitutional Constitutional ED: Denies chills or fever(s) Eyes Eyes: Denies blurry vision ENT ENT ED: Denies ear pain Cardiovascular Cardiovascular: Denies chest pain Respiratory/Chest Respiratory/Chest: Denies cough Gastrointestinal Gastrointestinal: Denies abdominal pain Genitourinary Genitourinary ED: Denies dysuria Musculoskeletal Musculoskeletal: Denies arthralgias Integumentary Denies abscess Neurologic Neurologic: Reports headache(s); Denies paresthesias or weakness Psychiatric Psychiatric: Denies anxiety or depression Endocrine Endocrinology: Denies polydipsia Hematologic/Lymphatic Hematologic/Lymphatic: Denies easy bleeding Allergic/Immunologic Allergic/Immunologic ED: Denies mouth swelling or tongue swelling EXAM Physical Exam Narrative Exam Narrative: Well-appearing 38-year-old female. Sitting in darkened room. Vital signs are stable afebrile. H EENT exam normal. Pupils round react light. Extra motions are intact. Photophobic. No signs of facial trauma. No frontal or maxillary sinus tenderness. No nasal congestion. Posterior pharynx is normal. No facial droop. Normal speech. TMs are normal bilaterally. Scalp nontender. Neck nontender. No meningismus. No lymphadenopathy. Able to flex her chin to chest. Back nontender. Lungs are clear. Heart regular rhythm rate about 80 no murmur. Chest wall ribs nontender. Abdomen soft nontender. Moving all 4 extremities. 5 out of 5 audiology technician strength bilaterally. Dorsi plantarflexion intact. Neurologic exam normal. NIH is 0. Fingertip to nose and [id number] within normal limits. No drift. Normal speech. No facial droop. Const Vital Signs: 01/20/24 22:20 01/21/24 00:19 01/21/24 01:22 Temperature 98.6 F 98 F Temperature Source Oral Pulse Rate 82 73 88 Respiratory Rate 16 16 18 Blood Pressure 128/71 H 133/72 H 127/65 H Blood Pressure Mean 90 92 85 Pulse Ox 100 100 97 Oxygen Delivery Method Room Air Room Air Positive well nourished and well developed; Negative for obese, cachectic, contractures or unkempt General Appearance ED: well developed and NAD; Negative for unkempt, cachectic, contractures, cyanotic, diaphoretic or pallor Nutritional Appearance: Negative for cachectic or obese HEENT Reports normocephalic, TM's clear and moist mucous membranes atraumatic; Negative for trauma, tenderness, temporal artery tenderness or vesicular rash Face and Sinus: Negative for sinus tenderness Tympanic Membrane ED: Yes TM's clear Eyes PERRL and EOMs intact bilaterally General Eye ED: Negative for pale conjunctiva or scleral icterus Neck no lymphadenopathy, supple, no meningeal signs and no JVD General: Negative for tenderness Resp normal respiratory effort and clear to auscultation bilaterally Effort and Inspection: Negative for retractions Auscultation: Negative for rales, rhonchi, wheezes or diminished lung sounds Cardio regular rate, regular rhythm, S1 normal heart sound, S2 normal heart sound and no murmurs Rate: Negative for bradycardia or tachycardic Rhythm: Negative for abnormal rhythm GI non-tender and non-distended Palpation: soft; Negative for firm or tender Back/Spine no CVA tenderness General Back: Negative for CVA tenderness or tenderness Cervical Spine: Negative for cervical spine tenderness Thoracic Spine / Upper Back: Negative for thoracic spinal tenderness Lumbar Spine / Lower Back: Negative for lumbar spinal tenderness Extremity normal to inspection and full ROM General Extremety ED: Negative for edema or tenderness General Extremity: Negative for edema Neuro oriented x3 and CN's II-XII intact bilaterally Sensorium / Orientation: awake, alert, oriented to person, oriented to place and oriented to time; Negative for orientation impaired, lethargic or stuporous Coordination / Balance: [id number] test normal Speech: speech normal Motor Exam: strength 5/5 throughout Psych mental status grossly normal Appearance: Negative for unkempt Attitude: No agitated Mood & Affect: Negative for depressed, anxious, tearful or other Skin General Skin Exam: elasticity normal; Negative for turgor normal, jaundice or pallor Lesions: no lesions Rashes: no rashes MDM MDM MDM Narrative Medical decision making narrative: 38-year-old female recurrent right-sided headache. Exam normal. Neurologic exam normal. NIH 0. No specific family history of intracranial bleed, aneurysm or migraines. Should be treated as a migraine with IV fluids, Toradol, Benadryl and Zofran. I will obtain a CT of her brain. She does have a history of recurrent anemia I will check a blood count. Repeat exam patient doing well at 1:30 AM. Repeat exam normal. Neurologic exam normal. Headache is resolved. We went over her CAT scan and blood count results. She is comfortable being discharged home. She will be written for prescription for Imitrex. History & Record Review Discussion w/independent historian: Patient and Family Lab Data Attestation: I reviewed the patient's lab results. Lab results narrative: CBC shows a white count 8. H&H 11.6 and 35.8 consistent with her prior baseline anemia. Platelets 287. Labs: Laboratory Results - last 24 hr 01/20/24 23:50 WBC 8.0 RBC 4.10 L Hgb 11.6 L Hct 35.8 L MCV 87.3 MCH 28.3 MCHC 32.4 RDW Std Deviation 41.3 RDW Coeff of Terri 13.2 Plt Count 287 MPV 10.0 Immature Gran % (Auto) 0.200 Neut % (Auto) 57.7 Lymph % (Auto) 31.4 [place] % (Auto) 7.7 Eos % (Auto) 2.5 Baso % (Auto) 0.5 Absolute Neuts (auto) 4.6 Absolute Lymphs (auto) 2.52 Nucleated RBC % 0 Radiography Diagnostic Testing: Clinical Impression(s) from Imaging Studies Brain CT 01/20/24 23:26 IMPRESSION: No acute abnormality. Relatively low lying cerebellar tonsils. Recommend follow-up nonemergent MRI to assess for Chiari malformation. Electronically Signed: Erica Lozada MD at 0:56 EST , Discharge Plan Triage Chief Complaint: Headache ED Provider: Martinez Pena Dx/Rx/DC Orders Clinical Impression: Headache Prescriptions: New sumatriptan succinate [Imitrex] 25 mg tablet See Rx Instructions .ROUTE .COMPLEX Qty: 10 0RF Rx Instructions: take 1 tab at onset of headache; if no relief may repeat 1 tab after at least 2 hrs; max = 4 tabs/24 hr No Action Prenatabs FA 1 TABLET tablet 1 tab PO DAILY ferrous sulfate 325 MG tablet 325 mg PO BID sennosides-docusate sodium [Stool Softener-Stimulant Laxat] 8.6-50 mg Tablet 1 - 2 tab PO DAILY Qty: 0 0RF acetaminophen 500 mg Tablet 1,000 mg PO Q6 Qty: 0 0RF ibuprofen 600 mg Tablet 600 mg PO Q6H Qty: 0 0RF Primary Care Provider: Eric Mcfarlane Referrals: Eric Mcfarlane MD [Primary Care Provider] - 3-5 Days if not improving Activity Restrictions/Additional Instructions: Your CAT scan and labs look good. Follow-up with your doctor as needed. Motrin for pain. Print Language: Spanish Disposition Disposition: Home, Self Care
[2024-01-20] MEDS: Ondansetron 4 MG/2 ML Vial IV (23:54)
[2024-01-20] MEDS: DiphenhydrAMINE 50 MG/ML Syringe 25 MG IV (23:54)
[2024-01-20] MEDS: 0.9% Normal Saline (500mL Bag) 500 ML 999 ML IV (23:55)
[2024-01-20] MEDS: Ketorolac 30 MG/ML Syringe IV (23:55)
[2024-01-20 23:57] LABS: Absolute Lymphocyte Count 2.52 X10^3/uL (0.83-4.51); Absolute Neutrophil Count 4.6 X10^3/uL (2.0-7.7); Basophil# 0.04 X10^3/uL; Basophil% 0.5 % (0-1); Eosinophils% 2.5 % (0-5); Hematocrit 35.8 % (37-47); Hemoglobin 11.6 g/dL (12.0-15.0); Lymphocyte # 2.52 X10^3/ul (0.83-4.51); Lymphocyte % 31.4 % (19-41); Mean Corp Hgb Conc 32.4 g/dL (32-36); Mean Corpuscular Hgb 28.3 pg (27.0-32.0); Mean Corpuscular Volume 87.3 fL (81-99); Monocyte# 0.62 X10^3/uL; Monocyte% 7.7 % (0-10); NRBC Flagged by Analyzer 0 % (0-5); Neutrophil # 4.63 X10^3/uL (2.7-7.7); Neutrophil % 57.7 % (47-70); Platelet Count 287 K/mm3 (150-450); RBC Distribution Width CV 13.2 % (11.6-14.6); RBC Distribution Width SD 41.3 fl (35.1-43.9)
[2024-01-21 00:19] VITALS: BP 133/72; PULSE 73; RESP 16; O2SAT 100
[2024-01-21 01:22] VITALS: BP 127/65; PULSE 88; RESP 18; TEMP 36.6; O2SAT 97
== END 2024-01-21 01:44 | disposition home or self-care (01) ==
PROVIDERS: Emergency Provider Emergency Medicine; PCP Family Medicine; Visit Provider Emergency Medicine
DX: R51.9 Headache, unspecified (principal); H53.149 Visual discomfort, unspecified
CPT/HCPCS: 70450; 85025; 96361; 96374; 96375; 99283; J7040; J2405